=== PATIENT | female | born 1970 | race Caucasian/White ===

== ENCOUNTER 2023-03-24 12:00 | Inpatient (IN) | payer OTHER ==
[2023-03-24] MEDS ORDERED: SODIUM CHLORIDE 0.9% 1000 ML INFUS.BAG IV ONE (12:21)
[2023-03-24 13:01] LABS: HEMOGLOBIN 12.9 GM/dL (10.7-15.3); MCH 32.2 pg (25.7-33.7); MCHC 33.9 g/dl (32.0-36.0); MEAN CELL VOLUME 94.9 fl (80-96); MEAN PLT VOLUME 9.4 fl (7.5-11.1); PLATELET COUNT 241 10^3/uL (134-434); RDW 12.3 % (11.6-15.6); WHITE BLOOD COUNT 12.8 K/mm3 (4.0-10.0)
[2023-03-24 13:07] LABS: EPI CELLS 29 /uL (0-25.1); HYALINE CASTS 1 /uL (0-3.1); INR 1.22 (0.83-1.09); PH,URINE 5.5 (5.0-8.0); PROTHROMBIN TIME (PATIENT) 14.1 SEC (9.7-13.0); URINE APPEARANCE CLOUDY; URINE BACTERIA 202 /uL (0-1359); URINE BILIRUBIN NEGATIVE (NEGATIVE); URINE COLOR YELLOW; URINE GLUCOSE (UA) 3+ (NEGATIVE); URINE KETONE 1+ (NEGATIVE); URINE LEUK ESTERASE 2+ (NEGATIVE); URINE NITRITE NEGATIVE (NEGATIVE); URINE PROTEIN 1+ (NEGATIVE); URINE RBC 94 /uL (0-23.9); URINE WBC 1705 /uL (0-25.8)
[2023-03-24 13:10] LABS: ACTIVATED PTT 29.5 SECONDS (25.2-36.5)
[2023-03-24 13:25] LABS: ANISOCYTOSIS 0; HELMET CELLS 0; HOWELL-JOLLY BODIES 0; MACROCYTOSIS 0; OVALOCYTE 0; ROULEAU 0; SICKELED CELLS 0; TARGET CELLS 0; TEAR DROP CELLS 0; TOXIC GRANULATION 0
[2023-03-24] MEDS ORDERED: CEFTRIAXONE 1 GM/50 ML BAG ONE ×2 (13:44→16:33)
[2023-03-24 13:56] LABS: POTASSIUM 4.1 mmol/L (3.5-5.1)
[2023-03-24 14:16] LABS: TOT PROT 6.9 g/dl (6.4-8.2)
[2023-03-24 14:18] LABS: BILIRUBIN,TOTAL 0.4 mg/dL (0.2-1)
[2023-03-24 14:22] LABS: CALCIUM 8.7 mg/dL (8.5-10.1)
[2023-03-24 14:23] LABS: BLOOD UREA NITROGEN 11.2 mg/dL (7-18)
[2023-03-24 14:26] LABS: CREATININE 1.3 mg/dL (0.55-1.3)
[2023-03-24] MEDS ORDERED: FENTANYL CITRATE/PF 50 MCG/ML VIAL IVPUSH ONE (17:00)
[2023-03-24] MEDS ORDERED: MIDAZOLAM HCL 2 MG/2 ML SINGLE DOSE VIAL IVPUSH ONE (17:00)
[2023-03-24] MEDS ORDERED: SODIUM CHLORIDE 500 ML IV ONE (17:00)
[2023-03-24] MEDS ORDERED: FENTANYL CITRATE/PF 50 MCG/ML VIAL ONE (17:05)
[2023-03-24] MEDS ORDERED: MIDAZOLAM HCL 2 MG/2 ML SINGLE DOSE VIAL ONE (17:05)
[2023-03-24] MEDS ORDERED: ACETAMINOPHEN 1000 MG/100 ML BAG IVPB PRN (18:24)
[2023-03-24] MEDS ORDERED: KETOROLAC TROMETHAMINE 15 MG/ML VIAL IVPUSH PRN (18:24)
[2023-03-24] MEDS ORDERED: SODIUM CHLORIDE 1,000 ML IV SCH (18:45)
[2023-03-24] MEDS ORDERED: ACETAMINOPHEN INJECTION 100 ML IVPB ONE (19:52)
[2023-03-24] MEDS: SODIUM CHLORIDE 1,000 ML IV SCH (21:32)
[2023-03-24] MEDS ORDERED: INSULIN (NOVOLOG) ASPART 100 UNITS/ML 10ML VIAL ONE (21:48)
[2023-03-24] MEDS: INSULIN SLIDING SCALE (NOVOLOG) 1 VIAL SQ SCH (23:08)
[2023-03-25 03:57] VITALS: BMI 24.9
[2023-03-25] MEDS: INSULIN SLIDING SCALE (NOVOLOG) 1 VIAL SQ SCH ×4 (06:17→22:02)
[2023-03-25 08:58] LABS: BASO % 0.4 % (0-2.0); EOS % 2.8 % (0-4.5); HEMATOCRIT 37.1 % (32.4-45.2); HEMOGLOBIN 12.3 GM/dL (10.7-15.3); LYMPH % 23.3 % (8-40); MCH 32.1 pg (25.7-33.7); MCHC 33.2 g/dl (32.0-36.0); MEAN CELL VOLUME 96.7 fl (80-96); MEAN PLT VOLUME 9.8 fl (7.5-11.1); NEUT % 61.5 % (42.8-82.8); PLATELET COUNT 246 10^3/uL (134-434); RBC 3.83 M/mm3 (3.60-5.2); RDW 12.4 % (11.6-15.6); WHITE BLOOD COUNT 9.7 K/mm3 (4.0-10.0)
[2023-03-25 09:14] LABS: POTASSIUM 3.8 mmol/L (3.5-5.1)
[2023-03-25 09:16] LABS: BLOOD UREA NITROGEN 8.9 mg/dL (7-18); CALCIUM 8.5 mg/dL (8.5-10.1)
[2023-03-25 09:17] LABS: ALBUMIN 2.6 g/dl (3.4-5.0); MAGNESIUM 1.9 mg/dL (1.8-2.4)
[2023-03-25 09:20] LABS: CREATININE 0.9 mg/dL (0.55-1.3)
[2023-03-25 09:21] LABS: BILIRUBIN,TOTAL 0.3 mg/dL (0.2-1); TOT PROT 6.3 g/dl (6.4-8.2)
[2023-03-25] MEDS: CEFTRIAXONE 1 GM in DEXTROSE 5%-WATER - 50 ML IVPB SCH (10:23)
[2023-03-25] MEDS ORDERED: INSULIN (NOVOLOG) ASPART 100 UNITS/ML 10ML VIAL ONE ×2 (16:38→21:56)
[2023-03-25] MEDS: SODIUM CHLORIDE 1,000 ML IV SCH (20:53)
[2023-03-25] MEDS: HEPARIN NA (PORCINE) 5,000 UNITS/ML 1ML VIAL SQ SCH (22:02)
[2023-03-26] MEDS: INSULIN SLIDING SCALE (NOVOLOG) 1 VIAL SQ SCH ×4 (06:34→22:11)
[2023-03-26] MEDS: SODIUM CHLORIDE 1,000 ML IV SCH (07:18)
[2023-03-26] MEDS: HEPARIN NA (PORCINE) 5,000 UNITS/ML 1ML VIAL SQ SCH ×2 (09:47→22:04)
[2023-03-26] MEDS: CEFTRIAXONE 1 GM in DEXTROSE 5%-WATER - 50 ML IVPB SCH (09:47)
[2023-03-26] MEDS ORDERED: INSULIN (NOVOLOG) ASPART 100 UNITS/ML 10ML VIAL ONE ×3 (12:17→22:11)
[2023-03-26] MEDS: POLYETHYLENE GLYCOL (HEALTHYLAX) 3350 17 GM PACKET PO SCH ×2 (15:31→22:03)
[2023-03-26] MEDS: DOCUSATE SODIUM 100 MG CAPSULE (FP) PO SCH (22:04)
[2023-03-27] MEDS: INSULIN SLIDING SCALE (NOVOLOG) 1 VIAL SQ SCH ×4 (06:55→22:06)
[2023-03-27 09:51] LABS: BASO % 0.6 % (0-2.0); HEMATOCRIT 35.2 % (32.4-45.2); HEMOGLOBIN 11.8 GM/dL (10.7-15.3); LYMPH % 52.1 % (8-40); MCH 32.6 pg (25.7-33.7); MCHC 33.6 g/dl (32.0-36.0); MEAN PLT VOLUME 9.2 fl (7.5-11.1); MONO % 7.8 % (3.8-10.2); NEUT % 35.5 % (42.8-82.8); PLATELET COUNT 332 10^3/uL (134-434); RBC 3.63 M/mm3 (3.60-5.2); RDW 12.5 % (11.6-15.6); WHITE BLOOD COUNT 6.6 K/mm3 (4.0-10.0)
[2023-03-27 09:56] LABS: INR 1.1 (0.83-1.09); PROTHROMBIN TIME (PATIENT) 12.7 SEC (9.7-13.0)
[2023-03-27 10:23] LABS: CALCIUM 9.4 mg/dL (8.5-10.1)
[2023-03-27 10:24] LABS: ALBUMIN 2.8 g/dl (3.4-5.0); MAGNESIUM 1.6 mg/dL (1.8-2.4)
[2023-03-27 10:27] LABS: CREATININE 0.8 mg/dL (0.55-1.3)
[2023-03-27 10:29] LABS: BILIRUBIN,TOTAL 0.5 mg/dL (0.2-1); TOT PROT 6.9 g/dl (6.4-8.2)
[2023-03-27] MEDS: SODIUM CHLORIDE 1,000 ML IV SCH ×2 (11:25→11:40)
[2023-03-27] MEDS: CEFTRIAXONE 1 GM in DEXTROSE 5%-WATER - 50 ML IVPB SCH (11:42)
[2023-03-27] MEDS: POLYETHYLENE GLYCOL (HEALTHYLAX) 3350 17 GM PACKET PO SCH ×2 (11:45→21:53)
[2023-03-27] MEDS: DOCUSATE SODIUM 100 MG CAPSULE (FP) PO SCH ×2 (11:47→21:53)
[2023-03-27] MEDS: HEPARIN NA (PORCINE) 5,000 UNITS/ML 1ML VIAL SQ SCH ×2 (11:48→21:53)
[2023-03-27] MEDS: INSULIN (LEVEMIR) 100 UNITS/ML UNITS SQ SCH (22:06)
[2023-03-28] MEDS: INSULIN SLIDING SCALE (NOVOLOG) 1 VIAL SQ SCH ×4 (06:47→22:21)
[2023-03-28] MEDS: SODIUM CHLORIDE 1,000 ML IV SCH ×3 (08:40→21:34)
[2023-03-28 09:13] LABS: BASO % 0.8 % (0-2.0); EOS % 4.1 % (0-4.5); HEMATOCRIT 33.3 % (32.4-45.2); HEMOGLOBIN 11.4 GM/dL (10.7-15.3); LYMPH % 47.5 % (8-40); MCH 32.3 pg (25.7-33.7); MCHC 34.4 g/dl (32.0-36.0); MEAN CELL VOLUME 93.8 fl (80-96); MEAN PLT VOLUME 8.8 fl (7.5-11.1); MONO % 8.8 % (3.8-10.2); NEUT % 38.8 % (42.8-82.8); PLATELET COUNT 332 10^3/uL (134-434); RBC 3.55 M/mm3 (3.60-5.2); RDW 12.7 % (11.6-15.6)
[2023-03-28] MEDS: DOCUSATE SODIUM 100 MG CAPSULE (FP) PO SCH ×2 (09:17→22:21)
[2023-03-28] MEDS: POLYETHYLENE GLYCOL (HEALTHYLAX) 3350 17 GM PACKET PO SCH ×2 (09:20→22:21)
[2023-03-28] MEDS: HEPARIN NA (PORCINE) 5,000 UNITS/ML 1ML VIAL SQ SCH (09:22)
[2023-03-28] MEDS: CEFTRIAXONE 1 GM in DEXTROSE 5%-WATER - 50 ML IVPB SCH (09:22)
[2023-03-28 09:43] LABS: POTASSIUM 4.2 mmol/L (3.5-5.1)
[2023-03-28 09:47] LABS: INR 1.11 (0.83-1.09); PROTHROMBIN TIME (PATIENT) 12.9 SEC (9.7-13.0)
[2023-03-28 09:52] LABS: ALBUMIN 2.6 g/dl (3.4-5.0)
[2023-03-28 09:55] LABS: BLOOD UREA NITROGEN 8.7 mg/dL (7-18); CALCIUM 9.1 mg/dL (8.5-10.1); MAGNESIUM 1.8 mg/dL (1.8-2.4)
[2023-03-28 09:58] LABS: CREATININE 0.7 mg/dL (0.55-1.3)
[2023-03-28 09:59] LABS: BILIRUBIN,TOTAL 0.3 mg/dL (0.2-1); TOT PROT 6.4 g/dl (6.4-8.2)
[2023-03-28] MEDS ORDERED: INSULIN (NOVOLOG) ASPART 100 UNITS/ML 10ML VIAL ONE ×4 (12:11→21:36)
[2023-03-28] MEDS ORDERED: INSULIN (LEVEMIR) 100 UNITS/ML UNITS SQ ONE (21:35)
[2023-03-28] MEDS: INSULIN (LEVEMIR) 100 UNITS/ML UNITS SQ SCH (22:24)
[2023-03-29] MEDS: INSULIN SLIDING SCALE (NOVOLOG) 1 VIAL SQ SCH ×4 (06:23→21:43)
[2023-03-29] MEDS: POLYETHYLENE GLYCOL (HEALTHYLAX) 3350 17 GM PACKET PO SCH ×2 (09:45→21:40)
[2023-03-29] MEDS: DOCUSATE SODIUM 100 MG CAPSULE (FP) PO SCH ×2 (09:45→21:39)
[2023-03-29] MEDS: CEFTRIAXONE 1 GM in DEXTROSE 5%-WATER - 50 ML IVPB SCH (09:49)
[2023-03-29 11:38] LABS: BASO % 0.8 % (0-2.0); EOS % 3.4 % (0-4.5); HEMATOCRIT 36.8 % (32.4-45.2); HEMOGLOBIN 12.5 GM/dL (10.7-15.3); LYMPH % 39.8 % (8-40); MCH 32.3 pg (25.7-33.7); MCHC 33.9 g/dl (32.0-36.0); MEAN CELL VOLUME 95.2 fl (80-96); MEAN PLT VOLUME 8.5 fl (7.5-11.1); MONO % 8.2 % (3.8-10.2); NEUT % 47.8 % (42.8-82.8); PLATELET COUNT 398 10^3/uL (134-434); RBC 3.87 M/mm3 (3.60-5.2); RDW 12.6 % (11.6-15.6); WHITE BLOOD COUNT 7.9 K/mm3 (4.0-10.0)
[2023-03-29 11:41] LABS: PROTHROMBIN TIME (PATIENT) 11.6 SEC (9.7-13.0)
[2023-03-29 12:37] LABS: ALBUMIN 2.9 g/dl (3.4-5.0); CALCIUM 9.7 mg/dL (8.5-10.1)
[2023-03-29 12:38] LABS: BLOOD UREA NITROGEN 7.2 mg/dL (7-18)
[2023-03-29 12:40] LABS: CREATININE 0.7 mg/dL (0.55-1.3)
[2023-03-29 12:42] LABS: BILIRUBIN,TOTAL 0.3 mg/dL (0.2-1); TOT PROT 6.9 g/dl (6.4-8.2)
[2023-03-29] MEDS ORDERED: PROMETHAZINE HCL 25 MG/1 ML VIAL IVPB PRN ×2 (14:03→15:24)
[2023-03-29] MEDS ORDERED: ONDANSETRON 4 MG/2 ML VIAL IVPUSH PRN ×2 (14:03→15:24)
[2023-03-29] MEDS ORDERED: MIDAZOLAM HCL 2 MG/2 ML SINGLE DOSE VIAL ONE (14:06)
[2023-03-29] MEDS ORDERED: LIDOCAINE HCL/PF 2% SDV 5ML VIAL ONE (14:06)
[2023-03-29] MEDS ORDERED: PROPOFOL 20 ML ONE (14:06)
[2023-03-29] MEDS ORDERED: LACTATED RINGERS SOLUTION 1,000 ML IV SCH ×2 (14:15→15:24)
[2023-03-29] MEDS ORDERED: DEXAMETHASONE SOD PHOSPHATE 4 MG/1 ML VIAL ONE (14:26)
[2023-03-29] MEDS ORDERED: ONDANSETRON 4 MG/2 ML VIAL ONE (14:26)
[2023-03-29] MEDS ORDERED: KETOROLAC TROMETHAMINE 30 MG/1 ML VIAL ONE (14:28)
[2023-03-29] MEDS ORDERED: IOHEXOL 300 MG/ML INFUS..BTL IJ ONE (14:36)
[2023-03-29] MEDS ORDERED: HEPARIN NA (PORCINE) 5,000 UNITS/ML 1ML VIAL SQ SCH (22:00)
[2023-03-29] MEDS ORDERED: INSULIN (LEVEMIR) 100 UNITS/ML UNITS SQ SCH (22:00)
[2023-03-29] MEDS ORDERED: INSULIN (NOVOLOG) ASPART 100 UNITS/ML 10ML VIAL ONE (23:44)
[2023-03-30] MEDS: INSULIN SLIDING SCALE (NOVOLOG) 1 VIAL SQ SCH ×2 (06:06→12:30)
[2023-03-30 09:55] LABS: BASO % 0.4 % (0-2.0); EOS % 0.7 % (0-4.5); HEMATOCRIT 36.3 % (32.4-45.2); HEMOGLOBIN 12.1 GM/dL (10.7-15.3); LYMPH % 24.3 % (8-40); MCH 31.5 pg (25.7-33.7); MCHC 33.3 g/dl (32.0-36.0); MEAN CELL VOLUME 94.5 fl (80-96); MEAN PLT VOLUME 8.5 fl (7.5-11.1); MONO % 6.4 % (3.8-10.2); NEUT % 68.2 % (42.8-82.8); PLATELET COUNT 437 10^3/uL (134-434); RBC 3.84 M/mm3 (3.60-5.2); RDW 12.7 % (11.6-15.6)
[2023-03-30] MEDS ORDERED: CEFTRIAXONE 1 GM in DEXTROSE 5%-WATER - 50 ML IVPB SCH (10:00)
[2023-03-30 10:12] LABS: POTASSIUM 4.6 mmol/L (3.5-5.1)
[2023-03-30 10:18] LABS: ALBUMIN 2.8 g/dl (3.4-5.0); BLOOD UREA NITROGEN 12.7 mg/dL (7-18); CALCIUM 9.6 mg/dL (8.5-10.1)
[2023-03-30 10:21] LABS: CREATININE 0.7 mg/dL (0.55-1.3)
[2023-03-30 10:22] LABS: BILIRUBIN,TOTAL 0.4 mg/dL (0.2-1); TOT PROT 6.9 g/dl (6.4-8.2)
[2023-03-30] MEDS: POLYETHYLENE GLYCOL (HEALTHYLAX) 3350 17 GM PACKET PO SCH (10:54)
[2023-03-30] MEDS: DOCUSATE SODIUM 100 MG CAPSULE (FP) PO SCH (10:54)
[2023-03-30] MEDS ORDERED: INSULIN (NOVOLOG) ASPART 100 UNITS/ML 10ML VIAL ONE (12:29)
[2023-03-30 12:52] VITALS: BP 129/75; PULSE 62; RESP 18; TEMP 98.3
== END 2023-03-30 13:00 | disposition home or self-care (01) | DRG 443 ==
LOC: JER 12:00 → JERBED 16:28 → J8W 20:31
PROVIDERS: ADMIT Internal Medicine; ATTEND Nurse Practitioner Acute Care
PROC: 0T9130Z Drainage of Left Kidney with Drainage Device, Percutaneous Approach (ICD-10-PCS; principal; 2023-03-24)
PROC: 0TC78ZZ Extirpation of Matter from Left Ureter, Via Natural or Artificial Opening Endoscopic (ICD-10-PCS; 2023-03-24)
PROC: 0T778DZ Dilation of Left Ureter with Intraluminal Device, Via Natural or Artificial Opening Endoscopic (ICD-10-PCS; 2023-03-24)
PROC: 0TP5X0Z Removal of Drainage Device from Kidney, External Approach (ICD-10-PCS; 2023-03-24)
PROC: 0TJB8ZZ Inspection of Bladder, Via Natural or Artificial Opening Endoscopic (ICD-10-PCS; 2023-03-24)
PROC: BT1FZZZ Fluoroscopy of Left Kidney, Ureter and Bladder (ICD-10-PCS; 2023-03-24)
DX: N13.6 Pyonephrosis (principal); E11.65 Type 2 diabetes mellitus with hyperglycemia
CPT/HCPCS: 0241U-QW; 36415; 50432; 71046-TC-FY; 74176-TC; 76000-TC-FY; 80053; 81003; 82010; 82360; 82962; 83036; 83735; 84100; 85025; 85610; 85730; 86850; 86900; 86901; 87040; 87070; 87075; 87086; 87102; 87116; 87205; 87206; 87210; 88300-TC; 93005; 93010; 94760; 99291; C1758; C2617; J1644